=== PATIENT | female | born 1935 | race Caucasian/White ===

== ENCOUNTER → 2016-11-18 | Outpatient (CLI) | payer MEDICARE, BC ==
[~2016-11-18] MED LIST: ALLOPURINOL300 MG PO; ASA CHILDREN'S81 MG PO; CALCIUM600 MG PO; CENTRUM CHEWAB1 EACH PO; COREG3.125 MG PO; CULTURELLE1 CAP PO; DELTASONE DPS1 MG PO; FUROSEMIDE20 MG PO; HYDREA500 MG PO; HYDROXYCHLOROQ200 MG PO; PRESERVISION A1 EAC2 PO; SYNTHROID DP0.088 MG PO; TIKOSYN500 MCG PO; VITAMIN D-32000 UNIT PO; WARFARIN SODIU7.5 MG PO
== END | disposition home or self-care (01) ==
LOC: RESC 08:42
DX: Z51.81 Encounter for therapeutic drug level monitoring (principal); Z79.899 Other long term (current) drug therapy